=== PATIENT | female | born 1990 | race Two or more races ===

== ENCOUNTER 2021-12-09 08:46 | Outpatient (CLI) | payer OTHER | END 2021-12-09 09:03 | disposition home or self-care (01) | LOC: SONOGRAMA 08:46 | PROVIDERS: ATTEND Obstetrics & Gynecology | DX: R10.2 Pelvic and perineal pain (principal) ==

== ENCOUNTER 2022-01-18 12:14 | Emergency (ER) | payer OTHER ==
[~2022-01-18] VITALS: Ht 162.6 cm; Wt 92.1 kg
[2022-01-18] MEDS ORDERED: PRENA1 CHEW TA1.4 MG PO (12:49)
== END 2022-01-18 16:42 | disposition home or self-care (01) ==
LOC: ER 12:14
DX: S09.8XXA Other specified injuries of head, initial encounter (principal); W19.XXXA Unspecified fall, initial encounter; Y93.89 Activity, other specified; Y92.89 Other specified places as the place of occurrence of the external cause; R42 Dizziness and giddiness; O26.893 Other specified pregnancy related conditions, third trimester; Z3A.32 32 weeks gestation of pregnancy
CPT/HCPCS: 70551

== ENCOUNTER 2022-02-15 11:07 | Outpatient (CLI) | payer OTHER ==
[~2022-02-15 11:07] MED LIST: PRENA1 CHEW TA1.4 MG PO
== END 2022-02-15 11:57 | disposition home or self-care (01) ==
LOC: NST 11:07
PROVIDERS: ATTEND Obstetrics & Gynecology Gynecology
DX: Z34.93 Encounter for supervision of normal pregnancy, unspecified, third trimester (principal)

== ENCOUNTER 2022-03-01 13:25 | Outpatient (CLI) | payer OTHER | END 2022-03-01 14:14 | disposition home or self-care (01) | LOC: NST 13:25 | PROVIDERS: ATTEND Obstetrics & Gynecology Gynecology | DX: Z34.83 Encounter for supervision of other normal pregnancy, third trimester (principal) ==

== ENCOUNTER 2022-03-05 07:00 | Inpatient (IN) | payer OTHER ==
[~2022-03-05] VITALS: Ht 152.4 cm; Wt 92.1 kg
== END 2022-03-07 14:44 | disposition home or self-care (01) | DRG 807 ==
LOC: LDR 07:00 → OB/GYN 13:57 → LDR 03-12 15:46
PROVIDERS: ADMIT Obstetrics & Gynecology Gynecology; ATTEND Obstetrics & Gynecology Gynecology
PROC: 10E0XZZ Delivery of Products of Conception, External Approach (ICD-10-PCS; principal; 2022-03-05)
PROC: 0KQM0ZZ Repair Perineum Muscle, Open Approach (ICD-10-PCS; 2022-03-05)
PROC: 4A1HXCZ Monitoring of Products of Conception, Cardiac Rate, External Approach (ICD-10-PCS; 2022-03-05)
DX: O70.1 Second degree perineal laceration during delivery (principal); Z37.0 Single live birth; Z3A.39 39 weeks gestation of pregnancy; Z20.822 Contact with and (suspected) exposure to COVID-19